=== PATIENT | male | born 1995 | race Caucasian/White ===

== ENCOUNTER 2017-02-13 19:27 | Emergency (ER) | payer OTHER ==
--- NOTE | 2017-02-13 20:32 | EDPHY ---
H & P Stated Complaint: laceration R 2nd finger HPI/ROS: Chief complaint: Right pointer finger laceration History of present illness: This is a 21-year-old male who presents to the emergency department for right pointer finger laceration. Patient states he cut the side of his finger on a knife just prior to arrival. He reports minimal pain, bleeding that has been controlled with a dressing. He denies abnormal coolness or paresthesias in the finger. He is still moving the finger well. - Personal History Current Tetanus/Diphtheria Vaccine: Yes - Medical/Surgical History Hx Asthma: No Hx Chronic Respiratory Disease: No Hx Diabetes: No Hx Cardiac Disease: No Hx Renal Disease: No Hx Cirrhosis: No Hx Alcoholism: No Hx HIV/AIDS: No Hx Splenectomy or Spleen Trauma: No Other PMH: PSHx: moles removed from scalp. PMHx: denies - Social History Smoking Status: Current some day smoker - Physical Exam Exam: General: Alert, nontoxic Skin: 1 cm laceration to the lateral aspect of the left mid pointer finger, no foreign bodies visualized on inspection Musculoskeletal: Patient is flexing and extending his left pointer finger in the DIPJ, PIP and MCP joint well Vascular: Capillary refill brisk in the left pointer finger Neurologic: Sensation intact in left pointer finger using light touch and two- point discrimination Constitutional: Initial Vital Signs Temperature (C) 37 C 02/13/17 19:29 Heart Rate 82 02/13/17 19:29 Respiratory Rate 14 02/13/17 19:29 Blood Pressure 133/77 H 02/13/17 19:29 O2 Sat (%) 95 02/13/17 19:29 O2 Delivery Mode Room Air Allergies/Adverse Reactions: No Known Allergies Allergy (Unverified 02/13/17 19:29) Home Medications: Medication Instructions Recorded NK [No Known Home Meds] 02/13/17 Medical Decision Making Procedures: Procedure: Laceration repair. Verbal consent was obtained from the patient. The 1 cm laceration on the left pointer finger was anesthetized in the usual fashion. The wound was irrigated, draped and explored to its base with a gloved finger. There were no deep structures involved. No tendon injury was identified. The wound was repaired with 5 0 Prolene, 3 simple interrupted sutures. The wound repair was simple. The procedure was performed by myself. ED Course/Re-evaluation: Patient is seen under the supervision of my secondary supervising physician Dr. Luis Fried. Patient presents to the emergency department for evaluation of a laceration to his left pointer finger. The finger is neurovascularly intact. He has good musculoskeletal control. His immunizations are up-to-date. Wound is clean, repaired and dressed. He is discharged home. Home care is discussed. She is asked to follow up with his primary care doctor or a hand doctor for recheck. Return precautions are given. Patient voiced understanding and agreement with plan. Differential Diagnosis: Included but not limited to laceration, foreign body contamination, deep structure injury Departure - Departure Disposition: Home, Routine, Self-Care Clinical Impression: Finger laceration Condition: Good Instructions: Care For Your Stitches (ED), Laceration (ED), Acute Wounds (ED) Additional Instructions: Follow-up with a primary care doctor or hand doctor for recheck Stitches to be removed in 7 days If symptoms worsen or new symptoms develop return to the emergency room for recheck Referrals: NONE *PRIMARY CARE P,. [Primary Care Provider] - As per Instructions Oziel Mathias MD [Medical Doctor] - As per Instructions [facility],. [Clinic] - As per Instructions
[2017-02-13 20:56] VITALS: BP 131/67; PULSE 69; RESP 20; TEMP 97.5; O2SAT 94
== END 2017-02-13 20:57 | disposition home or self-care (01) ==
PROC: 0HQGXZZ Repair Left Hand Skin, External Approach (ICD-10-PCS; principal; 2017-02-13)
DX: S61.211A Laceration without foreign body of left index finger without damage to nail, initial encounter (principal); F17.200 Nicotine dependence, unspecified, uncomplicated; W26.0XXA Contact with knife, initial encounter